=== PATIENT | female | born 1955 | race Caucasian/White ===

== ENCOUNTER 2016-12-26 02:36 | Emergency (ER) | payer SELFPAY ==
[~2016-12-26] VITALS: Ht 167.6 cm; Wt 70.0 kg
[2016-12-26 02:40] VITALS: BP 150/92; PULSE 102; RESP 20; TEMP 97.5; O2SAT 99
--- NOTE | 2016-12-26 04:28 | PD ---
HPI Chief Complaint: Back/ Neck Pain or Injury Time Seen by Provider: 03:45 Travel History International Travel<30 days: No Contact w/Intl Traveler<30days: No Traveled to known affect area: No History of Present Illness HPI Patient comes in for evaluation thoracic back pain ongoing for 3 weeks. Patient states she awoke with pain after sleeping in a hotel room. Patient describes pain as being spasm-like sensation that radiates around to the front of her thoracic cavity and underneath her breasts bilaterally. Pain is worse with certain movement and deep inspiration. Patient states that she was just discharged from [facility] yesterday morning given prescriptions for hydrocodone, Flexeril, gabapentin, and anti-inflammatory pain medication. Patient states she's been taking medication as prescribed does not feel the medication he is keeping her pain well controlled. Patient reports she was in the hospital for 6 days and during that time she had CTs, MRIs, and a lumbar puncture, which all came back negative per patient. Patient has not follow up with her primary care doctor. Patient denies trauma, chest pain, shortness of breath, numbness or tingling anywhere, fevers, loss or change of bowel or bladder, abdominal pain, or history of IV drug use. Patient states that she was constipated from the pain medication but has since resolved. Patient states she was receiving morphine while in the hospital that allowed her to go to sleep, but does not feel the oral medication is controlling her pain well enough currently. Patient has her medication bottles with her showing there were just filled on the . History Social History Alcohol Use: No Tobacco Use: No Allergies-Medications (Allergen,Severity, Reaction): Coded Allergies: No Known Allergies (Unverified , 12/26/16) Review of Systems Except as stated in HPI: all other systems reviewed are Neg Physical Exam Narrative GENERAL: Well-developed, overly nourished, in no acute distress, and non-ill appearing. SKIN: Warm and dry. HEAD: Atraumatic. Normocephalic. EYES: Pupils equal and round. EOMI. No scleral icterus. No injection or drainage. ENT: No nasal bleeding or discharge. Mucous membranes pink and moist. NECK: Trachea midline. Supple. No nuclear rigidity. CARDIOVASCULAR: Regular rate and rhythm. No murmur appreciated. RESPIRATORY: No accessory muscle use. No respiratory distress. Clear to auscultation. Breath sounds equal bilaterally. MUSCULOSKELETAL: No obvious deformities. No clubbing. No cyanosis. No edema. Full range of motion. No tenderness or crepitus over thoracic spine. Patient worsens palpation of the right thoracic muscles. Straight leg test is negative bilaterally. NEUROLOGICAL: Awake and alert. No obvious cranial nerve deficits. Motor grossly within normal limits. Normal speech. PSYCHIATRIC: Appropriate mood and affect; insight and judgment normal. Data Data Last Documented VS Vital Signs Date Time Temp Pulse Resp B/P Pulse Ox O2 Delivery O2 Flow Rate FiO2 12/26/16 02:40 97.5 102 20 150/92 99 Room Air MDM Medical Screen Exam Complete: Yes Emergency Medical Condition: No Narrative Course History and physical exam findings are not consistent with an emergent medical condition. She was given the option of receiving additional care, but has declined. Therefore the appropriate counseling recommendations were discussed with the patient and she was instructed to follow-up with her primary care physician as soon as possible for reevaluation. Patient was also informed of community resources from which she can obtain additional care. She is agreeable and verbalizes an understanding of the proposed plan. The patient states she will immediately return to the emergency department if her current complaints do not improve, new symptoms arise, or emergent condition develops. Patient ambulated out of the emergency department without difficulty. Primary Impression: Encounter for medical screening examination Disposition: [facility]-ED USE ONLY Condition: Stable Aron Molina Dec 26, 2016 04:28
== END 2016-12-26 04:28 | disposition left against medical advice (07) ==
LOC: NEPB 02:36
DX: M54.6 Pain in thoracic spine (principal)
CPT/HCPCS: 99281